=== PATIENT | female | born 1995 | race Caucasian/White ===

== ENCOUNTER 2018-04-03 12:32 | Emergency (ER) | payer MEDICAID ==
[2018-04-03 12:38] VITALS: BP 115/79
== END 2018-04-03 13:46 | disposition left against medical advice (07) ==
DX: Z53.21 Procedure and treatment not carried out due to patient leaving prior to being seen by health care provider (principal)

== ENCOUNTER 2018-06-06 18:34 | Emergency (ER) | payer MEDICAID, OTHER ==
--- NOTE | 2018-06-06 19:43 | EDPHY ---
General Time Seen by Provider: 06/06/18 19:42 Narrative: CLINICAL IMPRESSION: Left ring finger laceration ASSESSMENT/PLAN: Patient is a 23-year-old female with no significant medical history who presents to the emergency department after sustaining a laceration to her left ring finger while at work just prior to arrival. Patient is not toxic appearing , she is in no distress. Physical examination reveals 1 cm laceration overlying the dorsal aspect of the proximal interphalangeal joint, left 4th digit. There is no evidence of deep structure involvement, neurovascular compromise, foreign body, or bony involvement. The wound was not contaminated, tetanus status was already up-to-date. The wound was irrigated and then repaired as discussed in the procedure note, the patient tolerated this well. Wound care instructions discussed with patient, she will continue splint for the next 2-3 days and then return to the emergency department in 7-10 days for suture removal. She does not have a primary care provider, I gave her a referral. This injury did occur at work, she understands the importance of follow-up with her workman's Comp. Return precautions discussed- she will return for increased pain, signs of infection, fever, vomiting, if the wound opens or for any other concerns. Patient verbalized understanding and is in agreement with plan. DIFFERENTIAL DIAGNOSIS: includes but not limited to laceration of tendon or vascular structure, underlying fracture, laceration with retained FB ED PROCEDURES: Laceration Repair Verbal consent obtained by patient. Risks discussed, including but not limited to infection, pain, retained foreign body, need for additional repair, poor cosmetic result, tendon damage, nerve damage, poor wound healing, vascular damage. Alternatives to repair discussed. [place] protocol used to establish correct patient, procedure, equipment, network support administrator, and site. Anesthesia obtained by local infiltration. Anesthetized with 1% lidocaine with epinephrine. Laceration location left 4th digit, dorsal aspect of the proximal interphalangeal joint, length 1 cm, depth 2 mm, Repair type simple. Patient was prepped and draped in usual sterile fashion. Hemostasis achieved with direct pressure. Wound explored through full range of motion and entire depth of wound probed and visualized with gloved finger. No suspicion for nerve damage, tendon damage, underlying fracture, vascular damage, foreign body, or contamination. Area was cleansed with Shur-Clens and irrigated with sterile saline as per protocol. No foreign body or material removed. Repair method 5.0 Prolene interrupted. Three sutures placed. Well aligned, closely approximated. wound was dressed with antibiotic ointment, dressing and splint. Patient tolerated well with no immediate complications. Wound care: Clean and dry x 24 hours, gently clean with soap and water, cover with topical antibiotic ointment/bandage. Suture/Staple removal: 7-10 Days CHIEF COMPLAINT: Laceration HPI: Patient is a 23-year-old female with no significant medical history presents to the emergency department with complaints of laceration to her left ring finger. 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 Patient was able to get the bleeding under control. She complains of minimal pain at the site of the laceration. She denies any decreased mobility. She denies any numbness or tingling of the digit. She is right-hand dominant, she is up-to-date on her tetanus status. She denies any other injury or complaint PAST MEDICAL HISTORY: Denies Pertinent Past Surgical History: Denies Social History: Denies REVIEW OF SYSTEMS: All other systems negative Constitutional: No fever, no chills Musculoskeletal: No deformity, no joint pain Skin: Left ring finger laceration Neurological: No sensory loss or weakness. PHYSICAL EXAM: General Appearance: Alert, oriented, appropriate for age, cooperative, NAD, well hydrated, non-toxic appearing, VSS, no hypoxia. Neurological: Alert and oriented x 3 Skin: Warm and dry. 1 cm laceration overlying the proximal interphalangeal joint of the dorsal aspect of the left 4th digit. Upper Extremities: Right upper extremity is unremarkable. Intact distal pulses , Full range of motion intact, no tenderness, no ecchymosis or edema. Left hand reveals a 1 cm laceration overlying the dorsal aspect of the proximal interphalangeal joint, 4th digit. Two point discrimination is intact distally. Patient has full range of motion. Interphalangeal joints were tested independently with full strength. Left upper extremity is otherwise unremarkable. Lower Extremities: Intact distal pulses, No edema, No tenderness, No cyanosis, full range of motion intact, No calf tenderness bilaterally. MEDICAL DECISION MAKING: Patient was seen independently. Secondary supervising physician at time of evaluation was Dr. Noriega, he did not evaluate this patient. Diagnosis: Left 4th digit laceration. Summary: See assessment and plan for summary of ED visit Clinical lab tests: Not applicable. Independent visualization of images, tracing, or specimens not applicable. Decision to obtain medical records or history from someone other than the patient: No Review / Summarize previous medical records: Yes Disposition: Stable, discharge. - History Smoking Status: Never smoked - Objective Vital Signs: Initial Vital Signs Temperature (C) 36.4 C 06/06/18 18:41 Heart Rate 75 06/06/18 18:41 Respiratory Rate 16 06/06/18 18:41 Blood Pressure 127/71 H 06/06/18 18:41 O2 Sat (%) 98 06/06/18 18:41 O2 Delivery Mode Room Air Allergies/Adverse Reactions: No Known Allergies Allergy (Unverified 04/03/18 12:37) Home Medications: Medication Instructions Recorded NK [No Known Home Meds] 04/03/18 Departure - Departure Disposition: Home, Routine, Self-Care Clinical Impression: Laceration of finger Condition: Good Instructions: Laceration (ED) Additional Instructions: DISCHARGE INSTRUCTIONS FROM YOUR DOCTOR Thank you for visiting our emergency department today. Please keep in mind that discharge from the emergency department does not mean that there is nothing wrong - it simply means that we have not identified an emergency condition that requires further evaluation or treatment in the hospital. You should always plan to follow up with primary care for re-evaluation of your condition in the next 2-3 days. Make sure to follow up with your workman's Comp. Keep wound clean and dry for 24 hours. Then remove dressing, clean at least twice daily or when soiled with soap and water, apply antibiotic ointment and dressing. Do not soak the wound while the stitches are in place. Elevate hand as much as possible for the next 24 hours to decrease the swelling and pain. Wear the splint to immobilize the finger for the next 2-5 days to facilitate rapid healing. Anticipate suture removal in 7-10 days, return to the emergency department for suture removal. Tylenol every 4-6 hours as directed as needed for pain. Do not exceed 4000 mg in 24 hours. Ibuprofen as directed every 6-8 hours with food as needed for pain. Stop for stomach upset. Do not exceed 2400 mg in 24 hours. Continue your regular medications as prescribed. As discussed the laceration was not deep enough to visualize the tendon today. It is unlikely a tendon injury is present and your tendon function is currently intact. However, if at any time, you feel a pop and have difficulty bending or straightening the finger, you should seek re-evaluation from a hand specialist urgently. Return for signs of wound infection ie: redness, swelling, drainage, foul odor, red streaks, fever, chills, pain, bleeding, if the stitches pop, if the wound opens, for numbness, tingling, weakness, discoloration of the finger, coolness of the finger, inability to move or bend the finger or for any other new, worsening or worrisome symptoms. People present with illnesses and injuries in different ways, and it is always possible that we have missed something. You may always return for re-evaluation if symptoms worsen or if they are not improving or if you develop new/different symptoms. Again, thank you for choosing our emergency department. We hope that you feel better. Referrals: Braydon Tavarez DO [Medical Doctor] - As per Instructions (Establish care with a primary care provider if you do not have 1) ED,PHYSICIAN CARMEL [Medical Doctor] - As per Instructions (7-10 days for suture removal)
[2018-06-06 20:58] VITALS: BP 121/74
== END 2018-06-20 14:35 | disposition home or self-care (01) ==
PROC: 0HQGXZZ Repair Left Hand Skin, External Approach (ICD-10-PCS; principal; 2018-06-06)
DX: S61.215A Laceration without foreign body of left ring finger without damage to nail, initial encounter (principal); W23.1XXA Caught, crushed, jammed, or pinched between stationary objects, initial encounter; Y99.0 Civilian activity done for income or pay
CPT/HCPCS: L3925